=== PATIENT | female | born 1990 | race African-American/Black ===

== ENCOUNTER 2021-04-28 19:28 | Inpatient (IN) | payer SELFPAY ==
[~2021-04-28] VITALS: Ht 172.7 cm; Wt 95.4 kg
[2021-04-28 20:33] LABS: BASOPHILS # (AUTO) 0.1 (0.0-0.1); BASOPHILS % 0.6 % (0.0-1.0); EOSINOPHILS % 0.5 % (0.0-6.0); HEMATOCRIT 38.7 % (34.2-44.1); HEMOGLOBIN 12.5 g/dL (12.0-16.0); LYMPHOCYTES # (AUTO) 1.6 (1.0-3.2); MEAN CORPUSCULAR HEMOGLOBIN 27.2 pg (28-32); MEAN CORPUSCULAR HGB CONC 32.3 g/dL (31-35); MEAN CORPUSCULAR VOLUME 84.3 fL (81-99); MONOCYTES # (AUTO) 0.6 (0.2-0.8); MONOCYTES % 7.5 % (4.4-11.3); NEUTROPHILS # (AUTO) 5.4 (2.1-6.9); PLATELET COUNT 264 x10e3/uL (140-360); RED BLOOD COUNT 4.59 x10e6/uL (3.6-5.1); RED CELL DISTRIBUTION WIDTH 12.4 % (11.7-14.4)
[2021-04-28 20:57] LABS: ALANINE AMINOTRANSFERASE 16 IU/L (0-55); ALBUMIN 4.2 g/dL (3.5-5.0); ALBUMIN/GLOBULIN RATIO 1.1 (0.8-2.0); ALKALINE PHOSPHATASE 56 IU/L (40-150); ANION GAP 15.6 mmol/L (8-16); BLOOD UREA NITROGEN 9 mg/dL (7-26); BUN/CREATININE RATIO 10 (6-25); CALCIUM 9.5 mg/dL (8.4-10.2); CARBON DIOXIDE 25 mmol/L (22-29); CHLORIDE 105 mmol/L (98-107); CREATINE KINASE 95 IU/L (29-168); CREATININE, SERUM 0.93 mg/dL (0.57-1.11); EST GLOMERULAR FILTRATION RATE 71 ML/MIN (60-); GLUCOSE 88 mg/dL (74-118); POTASSIUM 3.6 mmol/L (3.5-5.1); SODIUM 142 mmol/L (136-145)
[2021-04-28] MEDS ORDERED: SODIUM CHLORIDE FLUSH 10 ML SYR INJ PRN (22:00)
[2021-04-28] MEDS ORDERED: ONDANSETRON HCL INJ 2MG/ML 2ML 2 MG/ML VIAL IV STA (22:46)
[2021-04-28] MEDS ORDERED: MORPHINE SULFATE INJ 4 MG/ML INJ 1ML IV PRN (23:00)
[2021-04-28] MEDS ORDERED: MORPHINE SULFATE INJ 4 MG/ML INJ 1ML ONE (23:02)
[2021-04-28] MEDS ORDERED: ONDANSETRON HCL INJ 2MG/ML 2ML 2 MG/ML VIAL ONE (23:02)
[2021-04-28 23:26] VITALS: BP 118/85
[2021-04-28 23:54] VITALS: BP 118/85
[2021-04-29] VITALS (8 sets, daily range): BP systolic 99–147; BP diastolic 66–98
[2021-04-29] MEDS: HYDROCODONE/APAP 10MG-325MG TAB PO PRN (05:58)
[2021-04-29 06:14] LABS: BASOPHILS % 0.5 % (0.0-1.0); EOSINOPHILS % 0.3 % (0.0-6.0); HEMOGLOBIN 11.2 g/dL (12.0-16.0); LYMPHOCYTES # (AUTO) 1.7 (1.0-3.2); MEAN CORPUSCULAR HEMOGLOBIN 27.2 pg (28-32); MEAN CORPUSCULAR HGB CONC 32.9 g/dL (31-35); MEAN CORPUSCULAR VOLUME 82.5 fL (81-99); MONOCYTES # (AUTO) 0.6 (0.2-0.8); MONOCYTES % 9.6 % (4.4-11.3); NEUTROPHILS # (AUTO) 4.2 (2.1-6.9); NEUTROPHILS % 64.3 % (38.7-80.0); PLATELET COUNT 240 x10e3/uL (140-360); RED BLOOD COUNT 4.12 x10e6/uL (3.6-5.1); RED CELL DISTRIBUTION WIDTH 12.3 % (11.7-14.4)
[2021-04-29 06:32] LABS: ALBUMIN 3.6 g/dL (3.5-5.0); ALBUMIN/GLOBULIN RATIO 1.1 (0.8-2.0); ANION GAP 11.5 mmol/L (8-16); CREATININE, SERUM 0.81 mg/dL (0.57-1.11); POTASSIUM 3.5 mmol/L (3.5-5.1)
[2021-04-29 06:49] LABS: CREATINE KINASE 76 IU/L (29-168)
[2021-04-29] MEDS: ENOXAPARIN SODIUM INJ 100 MG/ML SYR SC SCH ×2 (08:28→21:34)
[2021-04-29] MEDS ORDERED: PANTOPRAZOLE SOD 40 MG TABEC PO NR (10:00)
[2021-04-29] MEDS: CELECOXIB 100 MG CAP PO SCH (17:00)
[2021-04-30] VITALS (8 sets, daily range): BP systolic 88–114; BP diastolic 55–83
[2021-04-30 06:10] LABS: BASOPHILS % 0.8 % (0.0-1.0); EOSINOPHILS # (AUTO) 0.1 (0.0-0.4); EOSINOPHILS % 1.9 % (0.0-6.0); HEMATOCRIT 34.6 % (34.2-44.1); HEMOGLOBIN 11.2 g/dL (12.0-16.0); LYMPHOCYTES # (AUTO) 1.9 (1.0-3.2); LYMPHOCYTES % 38.5 % (18.0-39.1); MEAN CORPUSCULAR HEMOGLOBIN 27.2 pg (28-32); MEAN CORPUSCULAR HGB CONC 32.4 g/dL (31-35); MONOCYTES # (AUTO) 0.5 (0.2-0.8); MONOCYTES % 11.1 % (4.4-11.3); NEUTROPHILS # (AUTO) 2.3 (2.1-6.9); NEUTROPHILS % 47.3 % (38.7-80.0); PLATELET COUNT 218 x10e3/uL (140-360); RED BLOOD COUNT 4.12 x10e6/uL (3.6-5.1); RED CELL DISTRIBUTION WIDTH 12.3 % (11.7-14.4)
[2021-04-30 06:30] LABS: ANION GAP 11.4 mmol/L (8-16); CALCIUM 8.8 mg/dL (8.4-10.2); CREATININE, SERUM 0.75 mg/dL (0.57-1.11); POTASSIUM 3.4 mmol/L (3.5-5.1)
[2021-04-30] MEDS: PANTOPRAZOLE SOD 40 MG TABEC PO SCH (09:15)
[2021-04-30] MEDS: CELECOXIB 100 MG CAP PO SCH ×2 (09:15→16:51)
[2021-04-30] MEDS: HYDROCODONE/APAP 10MG-325MG TAB PO PRN (09:17)
[2021-04-30] MEDS: RIVAROXABAN 15 MG TABLET PO SCH ×2 (09:17→16:51)
[2021-05-01] VITALS (9 sets, daily range): BP systolic 92–113; BP diastolic 62–78
[2021-05-01] MEDS: RIVAROXABAN 15 MG TABLET PO SCH (08:48)
[2021-05-01] MEDS: CELECOXIB 100 MG CAP PO SCH (08:48)
[2021-05-01] MEDS: PANTOPRAZOLE SOD 40 MG TABEC PO SCH (08:48)
[2021-05-01 19:02] LABS: INR 1.21; PROTHROMBIN TIME 15.6 seconds (11.9-14.5)
[2021-05-01] MEDS: WARFARIN SOD 3 MG TAB PO SCH (19:20)
[2021-05-01] MEDS: ENOXAPARIN SODIUM INJ 100 MG/ML SYR SC SCH (20:42)
[2021-05-02] VITALS (10 sets, daily range): BP systolic 93–120; BP diastolic 65–72
[2021-05-02 06:26] LABS: INR 1.11; PROTHROMBIN TIME 14.5 seconds (11.9-14.5)
[2021-05-02] MEDS: PANTOPRAZOLE SOD 40 MG TABEC PO SCH (08:11)
[2021-05-02] MEDS ORDERED: CELECOXIB 100 MG CAP PO PRN (09:00)
[2021-05-02] MEDS: ENOXAPARIN SODIUM INJ 100 MG/ML SYR SC SCH ×2 (10:11→21:24)
[2021-05-02] MEDS: WARFARIN SOD 3 MG TAB PO SCH (16:53)
[2021-05-03] VITALS (8 sets, daily range): BP systolic 89–103; BP diastolic 58–68
[2021-05-03 06:08] LABS: INR 1.14; PROTHROMBIN TIME 14.8 seconds (11.9-14.5)
[2021-05-03] MEDS: PANTOPRAZOLE SOD 40 MG TABEC PO SCH (08:06)
[2021-05-03] MEDS: ENOXAPARIN SODIUM INJ 100 MG/ML SYR SC SCH ×2 (09:44→21:07)
[2021-05-03] MEDS: WARFARIN SOD 2.5 MG TAB PO SCH (16:19)
[2021-05-04] VITALS (8 sets, daily range): BP systolic 93–113; BP diastolic 53–74
[2021-05-04 07:15] LABS: INR 1.26; PROTHROMBIN TIME 16.1 seconds (11.9-14.5)
[2021-05-04] MEDS: PANTOPRAZOLE SOD 40 MG TABEC PO SCH (08:05)
[2021-05-04] MEDS: ENOXAPARIN SODIUM INJ 100 MG/ML SYR SC SCH ×2 (09:08→20:08)
[2021-05-04] MEDS: WARFARIN SOD 2.5 MG TAB PO SCH (17:06)
[2021-05-05] VITALS (7 sets, daily range): BP systolic 97–149; BP diastolic 61–81
[2021-05-05 06:10] LABS: INR 1.29; PROTHROMBIN TIME 16.3 seconds (11.9-14.5)
[2021-05-05] MEDS: PANTOPRAZOLE SOD 40 MG TABEC PO SCH (07:37)
[2021-05-05] MEDS: ENOXAPARIN SODIUM INJ 100 MG/ML SYR SC SCH ×2 (08:25→20:44)
[2021-05-05] MEDS: WARFARIN SOD 2.5 MG TAB PO SCH (08:27)
[2021-05-06] VITALS (7 sets, daily range): BP systolic 91–126; BP diastolic 52–83
[2021-05-06 07:38] LABS: BASOPHILS % 0.8 % (0.0-1.0); EOSINOPHILS # (AUTO) 0.1 (0.0-0.4); EOSINOPHILS % 1.6 % (0.0-6.0); HEMATOCRIT 36.3 % (34.2-44.1); HEMOGLOBIN 11.8 g/dL (12.0-16.0); LYMPHOCYTES # (AUTO) 2.2 (1.0-3.2); LYMPHOCYTES % 42.2 % (18.0-39.1); MEAN CORPUSCULAR HEMOGLOBIN 27.1 pg (28-32); MEAN CORPUSCULAR HGB CONC 32.5 g/dL (31-35); MEAN CORPUSCULAR VOLUME 83.3 fL (81-99); MONOCYTES # (AUTO) 0.5 (0.2-0.8); NEUTROPHILS # (AUTO) 2.3 (2.1-6.9); PLATELET COUNT 187 x10e3/uL (140-360); RED BLOOD COUNT 4.36 x10e6/uL (3.6-5.1); RED CELL DISTRIBUTION WIDTH 12.5 % (11.7-14.4)
[2021-05-06 07:57] LABS: CALCIUM 9.2 mg/dL (8.4-10.2); CREATININE, SERUM 0.85 mg/dL (0.57-1.11)
[2021-05-06] MEDS: ENOXAPARIN SODIUM INJ 100 MG/ML SYR SC SCH ×2 (08:45→21:48)
[2021-05-06] MEDS: PANTOPRAZOLE SOD 40 MG TABEC PO SCH (08:45)
[2021-05-06] MEDS: WARFARIN SOD 2.5 MG TAB PO SCH (16:59)
[2021-05-07] VITALS (8 sets, daily range): BP systolic 100–133; BP diastolic 48–94
[2021-05-07] MEDS: ENOXAPARIN SODIUM INJ 100 MG/ML SYR SC SCH ×2 (09:12→21:20)
[2021-05-07] MEDS: PANTOPRAZOLE SOD 40 MG TABEC PO SCH (09:12)
[2021-05-07 09:45] LABS: BASOPHILS % 0.9 % (0.0-1.0); EOSINOPHILS % 0.9 % (0.0-6.0); HEMATOCRIT 32.9 % (34.2-44.1); HEMOGLOBIN 10.5 g/dL (12.0-16.0); LYMPHOCYTES # (AUTO) 1.6 (1.0-3.2); LYMPHOCYTES % 37.1 % (18.0-39.1); MEAN CORPUSCULAR HEMOGLOBIN 26.9 pg (28-32); MEAN CORPUSCULAR HGB CONC 31.9 g/dL (31-35); MEAN CORPUSCULAR VOLUME 84.4 fL (81-99); MONOCYTES # (AUTO) 0.5 (0.2-0.8); MONOCYTES % 12.3 % (4.4-11.3); NEUTROPHILS # (AUTO) 2.1 (2.1-6.9); NEUTROPHILS % 48.6 % (38.7-80.0); PLATELET COUNT 192 x10e3/uL (140-360); RED CELL DISTRIBUTION WIDTH 12.6 % (11.7-14.4)
[2021-05-07 10:27] LABS: INR 1.6; PROTHROMBIN TIME 19.3 seconds (11.9-14.5)
[2021-05-07] MEDS ORDERED: WARFARIN SOD 3 MG TAB PO SCH (17:00)
[2021-05-07] MEDS ORDERED: WARFARIN SOD 5 MG TAB PO SCH (17:00)
[2021-05-07] MEDS: WARFARIN SOD 5 MG TAB PO SCH (20:03)
[2021-05-08] VITALS (7 sets, daily range): BP systolic 88–134; BP diastolic 45–93
[2021-05-08 05:36] LABS: INR 1.68; PROTHROMBIN TIME 20.1 seconds (11.9-14.5)
[2021-05-08] MEDS: PANTOPRAZOLE SOD 40 MG TABEC PO SCH (07:30)
[2021-05-08] MEDS: ENOXAPARIN SODIUM INJ 100 MG/ML SYR SC SCH (09:36)
[2021-05-08] MEDS ORDERED: WARFARIN SOD 5 MG TAB PO SCH (17:00)
[2021-05-08] MEDS: WARFARIN SOD 5 MG TAB PO SCH (17:00)
[2021-05-09 00:13] VITALS: BP 119/83
[2021-05-09] MEDS ORDERED: ACETAMINOPHEN 325 MG TAB PO PRN (00:15)
[2021-05-09 04:55] VITALS: BP 97/64
[2021-05-09 06:56] LABS: INR 2.11
[2021-05-09 08:00] VITALS: BP 111/82
[2021-05-09] MEDS: PANTOPRAZOLE SOD 40 MG TABEC PO SCH (08:43)
[2021-05-09 09:48] VITALS: BP 111/82
[2021-05-09] MEDS ORDERED: WARFARIN SODIUM3 MG PO (10:04)
== END 2021-05-09 11:30 | disposition home or self-care (01) | DRG 176 ==
LOC: ER 20:15 → ERHOLD 21:46 → MED/SURG3 23:20 → OBSVTOIN 04-29 08:48
PROVIDERS: ADMIT Internal Medicine; ATTEND Internal Medicine
DX: I26.99 Other pulmonary embolism without acute cor pulmonale (principal); L02.414 Cutaneous abscess of left upper limb; K21.9 Gastro-esophageal reflux disease without esophagitis; E66.9 Obesity, unspecified; M71.122 Other infective bursitis, left elbow; Z68.32 Body mass index [BMI] 32.0-32.9, adult; Z82.49 Family history of ischemic heart disease and other diseases of the circulatory system; B94.8 Sequelae of other specified infectious and parasitic diseases
CPT/HCPCS: 36415; 71045; 80048; 80053; 82550; 82553; 84484; 85025; 85610; 93005; 93306; 96360; 99284; G0378; J1650; J2270; J2405; U0002